=== PATIENT | female | born 1980 | race Caucasian/White ===

== ENCOUNTER 2022-06-27 14:09 | Emergency (ER) | payer SELFPAY ==
[~2022-06-27] VITALS: Ht 154.9 cm; Wt 87.3 kg
[2022-06-27 14:39] VITALS: BP 138/80
[2022-06-27 15:10] VITALS: BP 132/77
--- NOTE | 2022-06-27 15:10 | NUR ---
WALKED IN C/O LEFT FLANK PAIN ACCOMPANIED BY NAUSEA AND HEADACHE ONSET TODAY. DENIES ANY URINARY S/SX. DENIES FEVER. DENIES ANY HX STONE. AAOX4, AMBULATORY, VITALS STABLE, DENIES ANY VAGINAL DISCHARGE. URINE COLLECTED PMH: DENIES
[2022-06-27] MEDS ORDERED: MECLIZINE 25 MG TAB PO ONE (15:15)
[2022-06-27] MEDS ORDERED: KETOROLAC 60 MG/2 ML VIAL IM ONE (15:15)
[2022-06-27] MEDS ORDERED: MECL-303 PO (15:44)
[2022-06-27] MEDS ORDERED: IBUP-2213 PO (15:44)
--- NOTE | 2022-06-27 16:00 | NUR ---
Patient discharged with v/s stable. Written and verbal after care instructions given and explained. Patient alert, oriented and verbalized understanding of instructions. Ambulatory with steady gait. All questions addressed prior to discharge. ID band removed. Patient advised to follow up with PMD. Rx of IBUPROFEN AND MECLIZINE given. Patient educated on indication of medication including possible reaction and side effects. Opportunity to ask questions provided and answered.
== END 2022-06-27 16:00 | disposition home or self-care (01) ==
LOC: MED 14:09
DX: H81.399 Other peripheral vertigo, unspecified ear (principal); R10.9 Unspecified abdominal pain; Z90.49 Acquired absence of other specified parts of digestive tract
CPT/HCPCS: 81002; 81025; 96372; 99283; J1885; J8597